=== PATIENT | female | born 1970 | race Caucasian/White ===

== ENCOUNTER → 2024-07-17 | Outpatient (CLI) | payer OTHER ==
--- NOTE | 2024-07-17 17:53 | MM ---
Reason for Exam: Screening (asymptomatic). Baseline mammogram. Patient History: Menarche at age 13. First Full-Term at age 17. Postmenopausal. Patient has history of breast feeding. Risk Values: Dionna 5 year model risk: 0.8%. NCI Lifetime model risk: 6.1%. Prior Study Comparison: Patient's first Mammogram. Tissue Density: The breasts are heterogeneously dense, which may obscure small masses. Findings: Analyzed By CAD. A few scattered oral cyst calcifications are noted. There is a large area of focal asymmetry posterior upper quadrant right breast, possible superimposition shadow but further evaluation is recommended. Otherwise, no suspicious microcalcification or other discrete abnormality seen. Overall Assessment: Incomplete: need additional imaging evaluation, BI-RAD 0 Management: Special View Mammogram of the right breast. [facility] will attempt to contact patient to return for supplemental views and ultrasound if indicated. [facility], , 07/17/2024 5:51 PM. Electronically signed and approved by: Myla Call M.D. Radiologist
== END | disposition home or self-care (01) ==
LOC: RADMAMWWP 09:57
PROVIDERS: ATTEND Family Medicine
DX: Z12.31 Encounter for screening mammogram for malignant neoplasm of breast (principal); R92.333 Mammographic heterogeneous density, bilateral breasts; Z78.0 Asymptomatic menopausal state
CPT/HCPCS: 77067

== ENCOUNTER → 2024-07-20 | Outpatient (CLI) | payer OTHER ==
--- NOTE | 2024-07-20 11:53 | MM ---
Reason for Exam: Clinical finding. Last screening mammogram was performed less than 1 month ago. Patient History: Menarche at age 13. First Full-Term at age 17. Postmenopausal. Patient has history of breast feeding. Risk Values: Dionna 5 year model risk: 0.8%. NCI Lifetime model risk: 6.1%. Tissue Density: Right: The breasts are heterogeneously dense, which may obscure small masses. Findings: Analyzed By CAD. 3.5 cm density posterior upper-outer quadrant right breast, possible global asymmetry/dense island of tissue. Further ultrasound evaluation recommended to exclude underlying mass. Overall Assessment: Incomplete: need additional imaging evaluation, BI-RAD 0 Management: Diagnostic Breast Ultrasound of the right breast. [facility], , 07/20/2024 11:49 AM. Electronically signed and approved by: Myla Call M.D. Radiologist
--- NOTE | 2024-07-20 12:23 | USB ---
Reason for Exam: Additional evaluation requested from abnormal screening. Patient History: Menarche at age 13. First Full-Term at age 17. Postmenopausal. Patient has history of breast feeding. Risk Values: Dionna 5 year model risk: 0.8%. NCI Lifetime model risk: 6.1%. Technique: Method: Targeted. Prior Study Comparison: 07/17/2024 Bilateral MG screening mammo w CAD, [facility]. Findings: The upper outer quadrant of the right breast, the axilla of the right breast and the retroareolar of the right breast were scanned. Targeted ultrasound upper outer quadrant 9:00 to 12:00 including scanning of the subareolar region and axilla. Dense tissue is present particularly at 10:00. However, embedded within the dense tissue is a hypoechoic area measuring 5 mm. Internal echoes are present. Both small solid lesion and complicated cyst are the differential. Given the mammographic density, tissue sampling is recommended. Overall Assessment: Suspicious, BI-RAD 4 Management: Ultrasound Core Biopsy of the right breast. Results were given to the patient verbally at the time of exam. [facility], , 07/20/2024 12:17 PM. Electronically signed and approved by: Myla Call M.D. Radiologist
== END | disposition home or self-care (01) ==
LOC: RADMAMWWP 11:34
PROVIDERS: ATTEND Family Medicine
DX: R92.8 Other abnormal and inconclusive findings on diagnostic imaging of breast (principal); R92.333 Mammographic heterogeneous density, bilateral breasts; Z78.0 Asymptomatic menopausal state
CPT/HCPCS: 77061; 77065

== ENCOUNTER → 2024-07-25 | Day surgery (SDC) | payer OTHER ==
--- NOTE | 2024-07-27 12:02 | MM ---
Reason for Exam: Post Procedure Mammogram. Last screening mammogram was performed less than 1 month ago. Patient History: Menarche at age 13. First Full-Term at age 17. Postmenopausal. Patient has history of breast feeding. Risk Values: Dionna 5 year model risk: 0.8%. NCI Lifetime model risk: 6.1%. Prior Study Comparison: 07/17/2024 Bilateral MG screening mammo w CAD, [facility]. 07/20/2024 Right US breast workup limited RT, [facility]. 07/20/2024 Right MG 3D work up w/cad RT, [facility]. Tissue Density: Right: The breasts are heterogeneously dense, which may obscure small masses. Pathology Description: Location: 10 o'clock. Marker Left Behind. Needle Type: Celero Cores: 2 Gauge: 12 The procedure of ultrasound guided core biopsy was explained to the patient. Benefits, alternatives, and risks were discussed. An informed consent was then obtained. The patient was placed in supine positioning for imaging and for the procedure. The overlying skin was prepped and draped in usual sterile fashion. Lidocaine buffered with bicarbonate was used as anesthetic into the skin and subcutaneous tissue up to area of concern in the right 10:00 breast. A brinda was made with surgical scalpel. Under ultrasound guidance, a 12-gauge vacuum assisted biopsy gun device was used to obtain 2 core samples. Following both samples the lesion collapsed and was no longer visible and likely reflects a cyst. Following this, a biopsy clip was left in lesion. The patient tolerated the procedure well without any immediate complication. The patient was kept in the radiology department for short stay after the procedure and then discharged home in stable condition. Postprocedure mammogram: The patient was transferred to mammography for physician ordered post procedure mammogram for clip placement verification. Post procedure mammogram demonstrates the clip in appropriate placement. Impression: Successful, uncomplicated ultrasound guided core biopsy of area of concern in the right breast, full pathology results to follow. [facility], , 07/25/2024 11:31 AM. Pathology Results: Result: Benign, Fat necrosis. Pathology and radiology were reviewed. Findings are concordant. 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 Rare microcalcification identified. Negative for malignancy. Overall Assessment: Benign Assessment: MG diagnostic mammo RT wo CAD - Right: Benign, BI-RAD 2. Management: Diagnostic Breast Ultrasound of the right breast in 6 months. Electronically signed and approved by: Isidro Orozco M.D. Radiologis
== END ==
LOC: RADUSWWP 10:05
PROVIDERS: ATTEND Surgery
DX: N60.41 Mammary duct ectasia of right breast (principal); N61.0 Mastitis without abscess; N64.1 Fat necrosis of breast; Z78.0 Asymptomatic menopausal state
CPT/HCPCS: 88305; 77065; 19083; A4648

== ENCOUNTER → 2024-08-09 | Outpatient (CLI) | payer OTHER ==
[2024-08-09 08:50] VITALS: BP 161/96; PULSE 83; RESP 16; TEMP 98.4
--- NOTE | 2024-08-09 09:25 | P.GSCN ---
History of Present Illness Consult date: 08/09/24 Reason for Consult: ultrasound core biopsy of the right breast Requesting physician: Sabiha Edwards History of present illness: Verónica is a 54 year old femlae seen in consultation for Dr. Edwards regarding an ultrasound abnormality in the right breast. She had an ultrasound guided core biopsy on 07-25-24 which was fibrous scar and fat necrosis. She had a bilateral screening mammogram on 07-17-24 which was felt to be BIRAD 0 with an area of asymmetry in the UOQ of the right breast. She had on 07-20-24 a right breast daignostic mammogram and ultrasound. This led to an ultrasound core biopsy. The results were personally reviewed with DR. Rdz and the recommendation was that a repeat ultrasound be preformed. IF the area of concern remained than surgical excision should be preformed. The patient states that at the time of the biopsy the radiologist told her that the area that was punctured collapsed. She did not feel anything of concern in her breast. She has never had any surgery on her breast. She is not complaining of any recent trauma or infection in the breast. She is not complaining of any nipple discharge or skin changes. Caffeine: She drinks up to a pot of coffee/day Nicotine: Half a pack per day for about 30 years Chocolate: Daily control pills:used for about 2 years hormones: none Family History: mother: lung, kidney and brain cancer father: lung cancer sister: lung cancer, skin cancer in her eye melanoma ? Hormonal History: menarche: 13 , breast fed: yes, age at first : 17 menopause: periods stopped about 1 year ago Surgical History: tubaligation Medical History: anemic ? reason has had to have iron shots Social History: smitan: 05/17 PPD alcohol: rare drugs: none Review of Systems - Constitutional Reports sweats - EENT Eyes: denies blurred vision Ears: deny: decreased hearing, tinnitus Ears, nose, mouth and throat: Denies dysphagia - Breasts bilateral: as per HPI - Cardiovascular Denies chest pain, Denies shortness of breath - Respiratory Respiratory Comment(s): smoker - Gastrointestinal Reports as per HPI, Reports constipation - Genitourinary Genitourinary: Denies dysuria, Denies hematuria Menstruation: Reports postmenopausal - Musculoskeletal Reports as per HPI - Integumentary Denies rash, Denies unusual bruising - Neurological Denies headaches, Denies syncope - Psychiatric Reports as per HPI - Endocrine Reports as per HPI - Hematologic/Lymphatic Denies easy bleeding, Denies easy bruising - Allergic/Immunologic Reports as per HPI, Reports seasonal allergies Past Medical History Additional Past Medical History / Comment(s): low iron History of Any Multi-Drug Resistant Organisms: None Reported Past Surgical History: Tubal Ligation Past Anesthesia/Blood Transfusion Reactions: No Reported Reaction Past Psychological History: No Psychological Hx Reported Smoking Status: Current every day smoker Past Alcohol Use History: None Reported Additional Past Alcohol Use History / Comment(s): 10 cigarettes daily Past Drug Use History: None Reported Medications and Allergies Home Medications Medication Instructions Recorded Confirmed Type Cetirizine HCl [Zyrtec] 10 mg PO DAILY 07/20/24 08/09/24 History Fluticasone Nasal Armstrong [Flonase 1 spray EA NOSTRIL BID 07/20/24 08/09/24 History Nasal Armstrong] Multivitamins, Thera [Multivitamin 1 tab PO DAILY 07/20/24 08/09/24 History (formulary)] Allergies Allergy/AdvReac Type Severity Reaction Status Date / Time aspirin AdvReac Nausea & Verified 08/09/24 08:36 Vomiting Surgical - Exam Vital Signs Temp Pulse Resp BP Pulse Ox 98.4 F 83 16 161/96 98 08/09/24 08:39 08/09/24 08:39 08/09/24 08:39 08/09/24 08:39 08/09/24 08:39 - General no distress - Eyes normal ocular movement - ENT poor dentition - Neck trachea midline - Respiratory normal respiratory effort, clear to auscultation - Cardiovascular Rhythm: regular Heart Sounds: normal: S1, S2 - Abdomen Abdomen: soft, non tender, no guarding, no rigid, no rebound - Integumentary normal turgor - Neurologic no disoriented, no combative - Musculoskeletal normal gait - Psychiatric oriented to time, oriented to person, oriented to place, speech is normal, memory intact Breast Exam: BRA: medium sports bra inspection: Bilateral grade 2 ptosis Palpation: Right breast: Multi positional exam dense tissue in the upper outer quadrant area, biopsy site is noted and clean and dry no evidence of infection or hematoma Right axilla: No adenopathy of concern Left breast: Multi positional exam no dominant masses or nodules of concern Left axilla: No adenopathy of concern Results Mammogram and ultrasound personally reviewed with Dr. Warner and discussed, secondary to the appearance and ultrasound of the lesion prior to biopsy recommendation as per Dr. Warner was for a repeat ultrasound at this time if the lesion has completely gone away then we would follow conservatively if it is persistent then consideration of a needle Loke and excision is recommended. Assessment and Plan Assessment: Impression: Radiographic abnormality right breast ultrasound-guided core biopsy benign felt to be benign concordant initially however secondary to the radiographic appearance the recommendation as per Dr. Warner is to repeat an ultrasound to assure that the area of concern is gone If this area is gone then would repeat a right breast mammogram and ultrasound in 6 months if it is persistent Plan: Right breast ultrasound to assure that the area biopsied is gone if it is persistent needle localization and excision is recommended if it is gone then repeat right breast mammogram and ultrasound in 6 months Follow-up after right breast ultrasound CC: Dr. Edwards
== END ==
LOC: WWCWWP 07:43
PROVIDERS: ATTEND Surgery
DX: R92.8 Other abnormal and inconclusive findings on diagnostic imaging of breast (principal); F17.210 Nicotine dependence, cigarettes, uncomplicated; Z88.6 Allergy status to analgesic agent